=== PATIENT | female | born 1990 | race Caucasian/White ===

== ENCOUNTER 2021-07-11 09:56 | Emergency (ER) | payer BC ==
[~2021-07-11] VITALS: Ht 167.6 cm; Wt 61.2 kg
--- NOTE | 2021-07-11 10:19 | NUR ---
Dr Rodriguez at the bedside for MSE.
[2021-07-11 10:27] LABS: *BILIRUBIN,URIN 1+ (NEGATIVE); *BLOOD, URINE 3+ (NEGATIVE); *COLOR,URINE YELLOW (YELLOW); *KETONES,URINE 1+ (NEGATIVE); LEUKOCYTE ESTERASE ,URINE NEGATIVE (NEGATIVE); NITRITE, URINE NEGATIVE (NEGATIVE); PH,URINE 5.5 (5.0-8.0); UGLUCOSE NEGATIVE (NEGATIVE)
[2021-07-11 10:34] LABS: *CLARITY,URINE SLIGHTLY CLOUDY (CLEAR); *URINE HCG, QUAL NEGATIVE (NEGATIVE)
[2021-07-11] MEDS: IV NORMAL SALINE 100 ML BAG IV ONE (10:35)
[2021-07-11] MEDS ORDERED: KETOROLAC TROMETHAMINE 15 MG INJ ONE (10:36)
[2021-07-11 10:37] LABS: HEMATOCRIT 33.1 % (31.2-41.9); MEAN CORPUSCULAR HEMOGLOBIN 28.1 uug (24.7-32.8); MEAN CORPUSCULAR VOLUME 81.7 fL (75.5-95.3); PLATELET COUNT (AUTO) 295 K/uL (179-408)
[2021-07-11] MEDS: KETOROLAC TROMETHAMINE 15 MG INJ IVP ONE (10:41)
[2021-07-11 10:50] LABS: BILIRUBIN,TOTAL 0.3 mg/dL (0.2-1.0); CREATININE 0.7 mg/dL (0.6-1.3); POTASSIUM 3.5 mmol/L (3.5-5.1); TOTAL PROTEIN, SERUM 7.3 g/dL (6.4-8.2)
[2021-07-11 10:53] LABS: RBC,URINE 50-80 /HPF (0-3)
[2021-07-11 10:54] LABS: BACTERIA,URINE FEW /HPF (NONE SEEN); SQUAMOUS EPITHELIAL CELL,UR MODERATE /HPF (NONE SEEN); WBC,URINE 0-3 /HPF (0-3)
[2021-07-11 11:32] VITALS: BP 124/70
--- NOTE | 2021-07-11 11:45 | NUR ---
IV removed. Catheter intact and site benign. Pressure and 4x4 gauze applied to site. No bleeding noted.
--- NOTE | 2021-07-11 11:51 | NUR ---
Patient discharged to home in stable condition. Written and verbal after care instructions given. Patient verbalizes understanding of instructions. Stressed follow up or return to ER for worsening s/s.
--- NOTE | 2021-07-12 15:28 | NUR ---
LATE ENTRY: 07/11/21 1135 NS 1000ML BOLUS INFUSION COMPLETED AT 1135.
== END 2021-07-11 11:53 | disposition home or self-care (01) ==
LOC: ER 09:56
DX: R10.32 Left lower quadrant pain (principal); R82.998 Other abnormal findings in urine
CPT/HCPCS: 36415; 80053; 81001; 82550; 83690; 84703; 85025; 96361; 96374; 99284; J1885; A4663; J7030